=== PATIENT | male | born 1965 | race Caucasian/White ===

== ENCOUNTER → 2024-06-11 07:34 | Outpatient (REF) | payer BC, SELFPAY | LOC: RAD 07:34 | PROVIDERS: ATTENDING PHYSICIAN Physician Assistant Medical; FAMILY PHYSICIAN Family Medicine | DX: Z04.2 Encounter for examination and observation following work accident (principal); Z91.81 History of falling; S39.012A Strain of muscle, fascia and tendon of lower back, initial encounter | CPT/HCPCS: 72110 ==

== ENCOUNTER 2025-08-23 06:30 | Day surgery (SDC) | payer BC, SELFPAY ==
[2025-08-23 07:15] LABS: Glucose - Point of Care 195 mg/dl (70-99)
== END 2025-08-23 08:32 | disposition home or self-care (01) ==
LOC: GI 06:30
PROVIDERS: ATTENDING PHYSICIAN Internal Medicine Gastroenterology; FAMILY PHYSICIAN Family Medicine
DX: Z12.11 Encounter for screening for malignant neoplasm of colon (principal); Z83.719 Family history of colon polyps, unspecified; K64.8 Other hemorrhoids; K57.30 Diverticulosis of large intestine without perforation or abscess without bleeding
CPT/HCPCS: G0105; 82962